=== PATIENT | male | born 1990 | race Caucasian/White ===

== ENCOUNTER 2016-08-15 16:35 | Emergency (ER) | payer BC ==
[~2016-08-15] VITALS: Ht 185.4 cm; Wt 78.5 kg
[~2016-08-15 16:35] MED LIST: FLUO20CA42 PO; HYDR-757 PO; ONDA4TAB8 PO
--- OUTSIDE RECORDS SUMMARY | 2016-08-15 16:41 | XMS REPORT | Continuity of Care Document ---
Author Author [facility] Organization [facility] Address Unknown Phone Unavailable Care Team Providers Care Cloth Grader Name Role Phone CHRISTINA CHACON MD PCP Insurance Providers Payer Name Policy Number Subscriber Name [id number] Self / Same As Patient Advance Directives Directive Response Recorded Date/Time Advance Directives No 07/29/14 7:57pm Chief Complaint and Reason for Visit Chief Complaint Abdominal/GI Problems Reason for Visit Inflammatory bowel disease Problems Active Problems Medical Problem Onset Date Status Gastroenteritis Unknown Acute Gastroenteritis Unknown Acute Inflammatory bowel disease Unknown Acute Medications Current Home Medications Medication Dose Units Route Directions Days/Qty Instructions Start Date Fluoxetine Hcl 20 Mg 1 Each Oral Daily 07/29/14 Ondansetron 4 Mg 4 Mg Oral Every 4HRS as needed for Nausea 20 03/21/16 Hydrocodone/Acetaminophen 1 Each 1 Each Oral Every 4HRS for Pain 20 Social History Social History Problem Response Recorded Date/Time Alcohol Use Denies Use 07/29/2014 7:57pm Recreational Drug Use No 07/29/2014 7:57pm Recent Foreign Travel No 03/21/2016 8:45am Recent Infectious Disease Exposure No 03/21/2016 8:45am Hospitalization with Isolation Denies 03/21/2016 8:45am Recent Hopitalizations No 03/21/2016 8:53am Hospitalization with Isolation Denies 03/21/2016 8:45am Hospital Discharge Instructions No hospital discharge instructions. Plan of Care Discharge Date 03/21/16 11:15am Disposition 01 HOME, SELF-CARE Condition at Discharge Improved Instructions/Education Provided Acute Abdominal Pain (ED) Forms Provided Work Release Form Prescriptions See Medication Section Referrals CHRISTINA CHACON MD - Primary Care Physician Additional Instructions/Education Vicodin and Zofran as needed for pain and nausea. Clear liquids today. Close follow-up with Dr. Chacon. Return if any problems. All discharge instructions reviewed with patient and/or family. Voiced understanding. Functional Status No functional status results. Allergies, Adverse Reactions, Alerts Allergen Type Severity Reaction Status Last Updated NKANo Known Allergies Allergy Unknown Active 10/22/05 Immunizations No immunization records. Vital Signs Acute Vital Signs Vital Response Date/Time Temperature (Fahrenheit) 99 degrees F (97.6 - 99.5) 03/21/2016 8:45am Temperature (Calculated Celsius) 37.2252 degrees C (36.4 - 37.5) 03/21/2016 8 :45am Temperature Source Temporal 03/21/2016 8:45am Pulse Rate (adult) 88 bpm (60 - 90) 03/21/2016 8:45am Respiratory Rate 18 bpm (12 - 24) 03/21/2016 8:45am O2 Sat by Pulse Oximetry 98 % (88 - 100) 03/21/2016 8:45am Blood Pressure 124/71 mm Hg 03/21/2016 8:45am Blood Pressure Mean 88 mm Hg 03/21/2016 8:45am Pain Numeric Pain Scale 6 03/21/2016 9:02am Height (Feet) 6 feet 03/21/2016 8:45am Height (Inches) 1 inches 03/21/2016 8:45am Height (Calculated Centimeters) 185.541262 cm 03/21/2016 8:45am Weight (Pounds) 180 pounds 03/21/2016 8:45am Weight (Calculated Kilograms) 81.245183 kilograms 03/21/2016 8:45am Capillary Refill Capillary Refill Less Than 3 Seconds 03/21/2016 8:45am Height 6 ft 1 in Weight 180 lb Body Mass Index 23.7 kg/m^2 Results Laboratory Results Test Name Result Units Flags Reference Collection Date/Time Result Date/ Time Comments White Blood Count 9.4 10^3/uL 4.3-11.0 03/21/2016 8:50am 03/21/2016 9: 02am Red Blood Count 4.84 10^6/uL 4.35-5.85 03/21/2016 8:50am 03/21/2016 9: 02am Hemoglobin 15.1 G/DL 13.3-17.7 03/21/2016 8:50am 03/21/2016 9:02am Hematocrit 42 % 40-54 03/21/2016 8:50am 03/21/2016 9:02am Mean Corpuscular Volume 86 FL 80-99 03/21/2016 8:50am 03/21/2016 9: 02am Mean Corpuscular Hemoglobin 31 PG 25-34 03/21/2016 8:50am 03/21/2016 9: 02am Mean Corpuscular Hemoglobin Concent 36 G/DL 32-36 03/21/2016 8:50am 9:02am Red Cell Distribution Width 12.2 % 10.0-14.5 03/21/2016 8:50am 2015 9:02am Platelet Count 154 10^3/uL 130-400 03/21/2016 8:50am 03/21/2016 9:02am Mean Platelet Volume 10.7 FL H 7.4-10.4 03/21/2016 8:50am 03/21/2016 9: 02am Neutrophils (%) (Auto) 89 % H 42-75 03/21/2016 8:50am 03/21/2016 9:02am Lymphocytes (%) (Auto) 5 % L 12-44 03/21/2016 8:50am 03/21/2016 9:02am Monocytes (%) (Auto) 6 % 0-12 03/21/2016 8:50am 03/21/2016 9:02am Eosinophils (%) (Auto) 0 % 0-10 03/21/2016 8:50am 03/21/2016 9:02am Basophils (%) (Auto) 0 % 0-10 03/21/2016 8:50am 03/21/2016 9:02am Neutrophils # (Auto) 8.4 X 10^3 H 1.8-7.8 03/21/2016 8:50am 03/21/2016 9: 02am Lymphocytes # (Auto) 0.4 X 10^3 L 1.0-4.0 03/21/2016 8:50am 03/21/2016 9: 02am Monocytes # (Auto) 0.6 X 10^3 0.0-1.0 03/21/2016 8:50am 03/21/2016 9: 02am Eosinophils # (Auto) 0.0 10^3/uL 0.0-0.3 03/21/2016 8:50am 03/21/2016 9 :02am Basophils # (Auto) 0.0 10^3/uL 0.0-0.1 03/21/2016 8:50am 03/21/2016 9: 02am Neutrophils % (Manual) 82 % 03/21/2016 8:50am 03/21/2016 9:21am Band Neutrophils 9 % 03/21/2016 8:50am 03/21/2016 9:21am Lymphocytes % (Manual) 3 % 03/21/2016 8:50am 03/21/2016 9:21am Monocytes % (Manual) 5 % 03/21/2016 8:50am 03/21/2016 9:21am Eosinophils % (Manual) 1 % 03/21/2016 8:50am 03/21/2016 9:21am Basophils % (Manual) 0 % 03/21/2016 8:50am 03/21/2016 9:21am Blood Morphology Comment NORMAL 03/21/2016 8:50am 03/21/2016 9: 21am Sodium Level 134 MMOL/L L 135-145 03/21/2016 8:50am 03/21/2016 9:34am Potassium Level 3.6 MMOL/L 3.6-5.0 03/21/2016 8:50am 03/21/2016 9:34am Chloride Level 102 MMOL/L 98-107 03/21/2016 8:50am 03/21/2016 9:34am Carbon Dioxide Level 21 MMOL/L 21-32 03/21/2016 8:50am 03/21/2016 9: 34am Anion Gap 11 MMOL/L 5-14 03/21/2016 8:50am 03/21/2016 9:34am Blood Urea Nitrogen 9 MG/DL 7-18 03/21/2016 8:50am 03/21/2016 9:34am Creatinine 0.95 MG/DL 0.60-1.30 03/21/2016 8:50am 03/21/2016 9:34am BUN/Creatinine Ratio 9 03/21/2016 8:50am 03/21/2016 9:34am Estimat Glomerular Filtration Rate > 60 03/21/2016 8:50am 2015 9:34am GFR INTERPRETIVE DATA UNITS FOR ESTIMATED GFR (eGFR): mL/min/1.73 M2 REFERENCE RANGE FOR ESTIMATED GFR (eGFR) eGFR NORMAL eGFR >60 MODERATELY DECREASED eGFR 30-59 SEVERLY DECREASED eGFR 15-29 KIDNEY FAILURE <15 (OR DIALYSIS) Glucose Level 148 MG/DL H 70-105 03/21/2016 8:50am 03/21/2016 9:34am Calcium Level 9.5 MG/DL 8.5-10.1 03/21/2016 8:50am 03/21/2016 9:34am Total Bilirubin 1.0 MG/DL 0.1-1.0 03/21/2016 8:50am 03/21/2016 9:34am Alkaline Phosphatase 65 U/L 40-136 03/21/2016 8:50am 03/21/2016 9:34am Aspartate Amino Transf (AST/SGOT) 21 U/L 5-34 03/21/2016 8:50am 2015 9:34am Alanine Aminotransferase (ALT/SGPT) 28 U/L 0-55 03/21/2016 8:50am 03/21 9:34am Total Protein 7.0 G/DL 6.4-8.2 03/21/2016 8:50am 03/21/2016 9:34am Albumin 4.6 G/DL H 3.2-4.5 03/21/2016 8:50am 03/21/2016 9:34am Lipase 14 U/L 8-78 03/21/2016 8:50am 03/21/2016 9:34am Procedures No known history of procedures. Encounters Encounter Location Arrival/Admit Date Discharge/Depart Date Attending Provider Departed Emergency Room [facility] 03/21/16 8:38am 03/21 11:15am CLAU FOSTER MD Recent Diagnosis
--- NOTE | 2016-08-15 17:10 | ED GI ---
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 The patient noted blood in his stool shortly prior to presentation to emergency department today. The patient's symptoms began 2 days ago. Patient denies associated fever, chills, dysuria, vomiting, or black or tarry stools. Patient's past medical history is noncontributory. The patient describes episodes of blood clots and bleeding without stool mixed in with the blood. Allergies and Home Medications Allergies Coded Allergies: NKANo Known Allergies (Verified Allergy, Unknown, 10/22/05) Home Medications Fluoxetine Hcl 20 Mg Capsule 1 EACH PO DAILY (Reported) Review of Systems Constitutional: No chills, No fever EENTM: No Eye Pain Respiratory: Denies Cough Cardiovascular: Denies Chest Pain Gastrointestinal: Abdominal Pain Blood Streaked Stools Diarrhea Genitourinary: Denies Burning, Denies Frequency Musculoskeletal: No back pain Skin: No rash Psychiatric/Neurological: No Symptoms Reported Endocrine: No Symptoms Reported Hematologic/Lymphatic: No Symptoms Reported Past Igtrzcz-Wtinfk-Jijtrt Hx Patient Social History Alcohol Use: Occasionally Uses Recreational Drug Use: No Smoking Status: Never a Smoker Recent Foreign Travel: No Contact w/Someone Who Travel: No Recent Infectious Disease Expo: No Recent Hopitalizations: No Physical Abuse Screen: No Sexual Abuse: No Immunizations Up To Date PED Vaccines UTD: Yes Surgeries HX Surgeries: No Respiratory Hx Respiratory Disorders: No Cardiovascular Hx Cardiac Disorders: No Neurological Hx Neurological Disorders: Yes (HX OF SEIZURES A CHILD) Reproductive System Hx Reproductive Disorders: No Genitourinary Hx Genitourinary Disorders: No Gastrointestinal Hx Gastrointestinal Disorders: No Musculoskeletal Hx Musculoskeletal Disorders: No Endocrine Hx Endocrine Disorders: No HEENT HX ENT Disorders: No Cancer Hx Cancer: No Psychosocial Hx Psychiatric Problems: Yes Behavioral Health Disorders: Anxiety, Depression Integumentary HX Skin/Integumentary Disorder: No Blood Transfusions Hx Blood Disorders: No Adverse Reaction to a Blood Tr: No Reviewed Nursing Assessment Reviewed/Agree w Nursing PMH: Yes Physical Exam Vital Signs VS - Last 72 Hours, by Label 08/15/16 16:42 Temp 97.2 Pulse 61 Resp 18 B/P 124/84 Pulse Ox 100 O2 Delivery Room Air Capillary Refill : Less Than 3 Seconds General Appearance: WD/WN no apparent distress HEENT: normal ENT inspection Neck: normal inspection Respiratory: chest non-tender lungs clear normal breath sounds Cardiovascular: regular rate, rhythm no edema Gastrointestinal: normal bowel sounds non tender soft no organomegaly Rectal: normal exam normal rectal tone heme negative stool Extremities: normal range of motion non-tender Back: normal inspection Pelvic: normal external exam normal adnexa Male: normal genitalia Neurologic/Psychiatric: no motor/sensory deficits alert Skin: normal color warm/dry Progress/Results/Core Measures Results/Orders Lab Results Laboratory Tests Test 08/15/16 17:10 Range/Units Alanine Aminotransferase (ALT/SGPT) 55 0-55 U/L Albumin 4.5 3.2-4.5 G/DL Alkaline Phosphatase 65 40-136 U/L Anion Gap 8 5-14 MMOL/L Aspartate Amino Transf (AST/SGOT) 26 5-34 U/L BUN/Creatinine Ratio 10 Basophils # (Auto) 0.1 0.0-0.1 10^3/uL Basophils (%) (Auto) 1 0-10 % Blood Urea Nitrogen 9 7-18 MG/DL Calcium Level 9.1 8.5-10.1 MG/DL Carbon Dioxide Level 25 21-32 MMOL/L Chloride Level 106 98-107 MMOL/L Creatinine 0.88 0.60-1.30 MG/DL Eosinophils # (Auto) 0.4 H 0.0-0.3 10^3/uL Eosinophils (%) (Auto) 5 0-10 % Estimat Glomerular Filtration Rate > 60 Glucose Level 89 70-105 MG/DL Hematocrit 42 40-54 % Hemoglobin 14.9 13.3-17.7 G/DL INR Comment 1.0 0.8-1.4 Lymphocytes # (Auto) 1.5 1.0-4.0 X 10^3 Lymphocytes (%) (Auto) 23 12-44 % Mean Corpuscular Hemoglobin 31 25-34 PG Mean Corpuscular Hemoglobin Concent 35 32-36 G/DL Mean Corpuscular Volume 87 80-99 FL Mean Platelet Volume 10.6 H 7.4-10.4 FL Monocytes # (Auto) 0.7 0.0-1.0 X 10^3 Monocytes (%) (Auto) 10 0-12 % Neutrophils # (Auto) 4.1 1.8-7.8 X 10^3 Neutrophils (%) (Auto) 61 42-75 % Platelet Count 165 130-400 10^3/uL Potassium Level 4.0 3.6-5.0 MMOL/L Prothrombin Time 12.4 12.2-14.7 SEC Red Blood Count 4.84 4.35-5.85 10^6/uL Red Cell Distribution Width 12.5 10.0-14.5 % Sodium Level 139 135-145 MMOL/L Total Bilirubin 0.5 0.1-1.0 MG/DL Total Protein 6.9 6.4-8.2 G/DL White Blood Count 6.6 4.3-11.0 10^3/uL My Orders Orders-CLAU FOSTER MD Cbc With Automated Diff (08/15/16 17:05) Comprehensive Metabolic Panel (08/15/16 17:05) Protime With Inr (08/15/16 17:05) Urinalysis (08/15/16 17:05) Ns Iv 1000 Ml (Sodium Chloride 0.9%) (08/15/16 17:15) Saline Lock/Iv-Start (08/15/16 17:23) Vital Signs/I&O Vital Sign - Last 12Hours 08/15/16 16:42 Temp 97.2 Pulse 61 Resp 18 B/P 124/84 Pulse Ox 100 O2 Delivery Room Air Blood Pressure Mean: 97 Progress Note : Time: 17:37 Progress Note The patient had a stool while in the emergency department. The stool was essentially bright red blood with several clots. Patient's rectal exam demonstrated normal stool which was guaiac negative. Patient's CBC, pro time, and CMP were unremarkable. I discussed the findings with the patient and reassured him. I asked to follow closely with his primary care physician, Dr. Chacon, and consider referral for GI for colonoscopy. The episodes of bright red blood are suggestive of inflammatory bowel disease. ECG Initial ECG Impression Date: Aug 15, 2016 Departure Impression Impression: Primary Impression: Rectal bleed Disposition: HOME, SELF-CARE Condition: Unchanged Departure-Patient Inst. Decision time for Depature: 17:55 Referrals: CHRISTINA CHACON MD (PCP/Family) Primary Care Physician Patient Instructions: Inflammatory Bowel Disease (DC) Add. Discharge Instructions: Follow-up Dr. Chacon. Return if any problems. All discharge instructions reviewed with patient and/or family. Voiced understanding. CLAU FOSTER MD Aug 15, 2016 17:10
[2016-08-15] MEDS ORDERED: NS IV 1000 ML 1,000 ML IV SCH (17:15)
[2016-08-15 17:32] LABS: BASOPHILS # (AUTO) 0.1 10^3/uL (0.0-0.1); BASOPHILS % (AUTO) 1 % (0-10); EOSINOPHILS # (AUTO) 0.4 10^3/uL (0.0-0.3); EOSINOPHILS % (AUTO) 5 % (0-10); LYMPHOCYTES # (AUTO) 1.5 X 10^3 (1.0-4.0); LYMPHOCYTES % (AUTO) 23 % (12-44); MEAN CORPUSCULAR HEMOGLOBIN 31 PG (25-34); MEAN CORPUSCULAR HGB CONC 35 G/DL (32-36); MEAN CORPUSCULAR VOLUME 87 FL (80-99); MEAN PLATELET VOLUME 10.6 FL (7.4-10.4); MONOCYTES # (AUTO) 0.7 X 10^3 (0.0-1.0); MONOCYTES % (AUTO) 10 % (0-12); NEUTROPHILS # (AUTO) 4.1 X 10^3 (1.8-7.8); NEUTROPHILS % (AUTO) 61 % (42-75); PLATELET COUNT 165 10^3/uL (130-400); RED BLOOD COUNT 4.84 10^6/uL (4.35-5.85); RED CELL DISTRIBUTION WIDTH 12.5 % (10.0-14.5); WHITE BLOOD COUNT 6.6 10^3/uL (4.3-11.0)
[2016-08-15 17:35] LABS: PROTHROMBIN TIME PATIENT 12.4 SEC (12.2-14.7)
[2016-08-15 17:47] LABS: ALANINE AMINOTRANSFERASE 55 U/L (0-55); ALBUMIN 4.5 G/DL (3.2-4.5); ANION GAP 8 MMOL/L (5-14); ASPARTATE AMINO TRANSFERASE 26 U/L (5-34); BILIRUBIN,TOTAL 0.5 MG/DL (0.1-1.0); BLOOD UREA NITROGEN 9 MG/DL (7-18); BUN/CREATININE RATIO 10; CALCIUM 9.1 MG/DL (8.5-10.1); CARBON DIOXIDE 25 MMOL/L (21-32); CHLORIDE 106 MMOL/L (98-107); CREATININE SERUM 0.88 MG/DL (0.60-1.30); GFR ESTIMATED > 60; GLUCOSE 89 MG/DL (70-105); SODIUM 139 MMOL/L (135-145); TOTAL PROTEIN 6.9 G/DL (6.4-8.2)
[2016-08-15 18:05] VITALS: BP 113/75
== END 2016-08-15 18:10 | disposition home or self-care (01) ==
LOC: EDUNIT# 16:35 → ER 16:37
DX: K62.5 Hemorrhage of anus and rectum (principal); R19.7 Diarrhea, unspecified
CPT/HCPCS: 36415; 80053; 85025; 85610; 96360

== ENCOUNTER 2016-08-18 10:46 | Outpatient (CLI) | payer BC ==
[~2016-08-18] VITALS: Ht 185.4 cm; Wt 78.5 kg
--- OUTSIDE RECORDS SUMMARY | 2016-08-18 10:49 | XMS REPORT | Continuity of Care Document ---
Author Author [facility] Organization [facility] Address Unknown Phone Unavailable Care Team Providers Care Spinning Doffer Name Role Phone CHRISTINA CHACON MD PCP Insurance Providers Payer Name Policy Number [id number] Self / Same As [...] 1 inches 03/21/2016 8:45am Height (Calculated Centimeters) [phone] cm 03/21/2016 8:45am Weight (Pounds) 180 pounds 03/21/2016 8:45am Weight (Calculated Kilograms) 81.727799 kilograms 03/21/2016 8:45am Capillary Refill Capillary Refill [...] Date Attending Provider Departed Emergency Room [facility] 03/21/16 8:38am 03/21 11:15am CLAU FOSTER MD Recent Diagnosis
[2016-08-18] MEDS ORDERED: OMEP20TA33 PO (10:54)
[2016-08-18] MEDS ORDERED: LACT1CAP39 PO (10:54)
== END 2016-08-18 10:55 ==
LOC: PREOP 10:46
PROVIDERS: ATTEND Surgery
DX: Z01.818 Encounter for other preprocedural examination (principal); K62.5 Hemorrhage of anus and rectum; R19.7 Diarrhea, unspecified

== ENCOUNTER 2016-08-19 09:41 | Day surgery (SDC) | payer BC ==
[~2016-08-19] VITALS: Ht 185.4 cm; Wt 78.5 kg
[~2016-08-19 09:41] MED LIST changes: +LACT1CAP39 PO; +OMEP20TA33 PO
--- OUTSIDE RECORDS SUMMARY | 2016-08-19 09:44 | XMS REPORT | Continuity of Care Document ---
Author Author [facility] Organization [facility] Address Unknown Phone Unavailable Care Team Providers Care Urban Forester Name Role Phone CHRISTINA CHACON MD PCP Insurance Providers Payer Name Policy Number Subscriber [id number] Yash Mendez Self / Same [...] 1 inches 03/21/2016 8:45am Height (Calculated Centimeters) [phone] cm 03/21/2016 8:45am Weight (Pounds) 180 pounds 03/21/2016 8:45am Weight (Calculated Kilograms) 81.009773 kilograms 03/21/2016 8:45am Capillary Refill Capillary Refill [...] Emergency Room [facility] 03/21/16 8:38am 03/21 11:15am CLAU FOSTER MD Recent Diagnosis
--- OUTSIDE RECORDS SUMMARY | 2016-08-19 09:44 | XMS REPORT | Continuity of Care Document ---
Author Author [facility] Organization [facility] Address Unknown Phone Unavailable Care Team Providers Care Price Economist Name Role Phone CHRISTINA CHACON MD PCP Insurance Providers Payer Name Policy Number [facility]scriber [id number] Mendez Self / Same As [...] 1 inches 03/21/2016 8:45am Height (Calculated Centimeters) [phone] cm 03/21/2016 8:45am Weight (Pounds) 180 pounds 03/21/2016 8:45am Weight (Calculated Kilograms) 81.829574 kilograms 03/21/2016 8:45am Capillary Refill Capillary Refill [...] Date Attending Provider Departed Emergency Room [facility] 03/21/16 8:38am 03/21 11:15am CLAU FOSTER MD Recent Diagnosis
[2016-08-19] MEDS ORDERED: FLUMAZENIL (ROMAZICON) 0.1 MG/ML 5 ML VIAL INJ PRN (10:30)
[2016-08-19] MEDS ORDERED: NS IV 500 ML 500 ML IV PRN (10:30)
[2016-08-19] MEDS ORDERED: NALOXONE 0.4 MG/ML 1 ML (NARCAN) VIAL IVP PRN (10:30)
[2016-08-19 10:45] VITALS: BP 115/77
[2016-08-19] MEDS ORDERED: MIDAZOLAM 2 MG/2 ML (VERSED) VIAL ONE ×5 (11:16→11:17)
[2016-08-19] MEDS ORDERED: fentaNYL INJECTION 100 MCG/2 ML AMP ONE ×2 (11:16)
[2016-08-19] MEDS: fentaNYL INJECTION 100 MCG/2 ML AMP IVP PRN ×2 (11:24→11:26)
[2016-08-19] MEDS: MIDAZOLAM 2 MG/2 ML (VERSED) VIAL IVP PRN ×3 (11:25→11:29)
--- NOTE | 2016-08-19 11:26 | Pre-Op Note & Conscious Sedat ---
Pre-Operative Progress Note H&P Reviewed The H&P was reviewed, patient examined and no changes noted. Date H&P Reviewed: Aug 19, 2016 Time H&P Reviewed: 11:25 Pre-Op Diagnosis: rectal bleeding and diarrhea Conscious Sedation Pre-Proced ASA Class: 1 Airway Mallampati Classification: ([place]-apache appropriate class) I. II. III, IV Lungs Heart ASA score ASA 1: a normal healthy patient ASA 2: a patient with a mild systemic disease (mid diabetes, controlled hypertension, obesity ASA 3: a patient with a severe systemic disease that limits activity (angina , COPD, prior Myocardial infarction) ASA 4: a patient with an incapacitating disease that is a constant threat to life (CHF, renal failure) ASA 5: a moribund patient not expected to survive 24 hrs. (ruptured aneurysm) ASA 6: a declared brain patient whose organs are being harvested. For emergent operations, add the letter E after the classification Grade 1 Sedation Plan: Discussed options with patient/fam Note The patient is an appropriate candidate to undergo the planned procedure, sedation, and anesthesia. The patient immediately re-assessed prior to indication. ALEXYS ANAYA MD Aug 19, 2016 11:26 am
--- NOTE | 2016-08-19 11:43 | Progress Note-Post Operative ---
Post-Operative Progess Note Pre-Operative Diagnosis rectal bleeding and diarrhea Post-Operative Diagnosis inflammation and erythema along the sigmoid colon Post-Op Procedure Note Date of Procedure: Aug 19, 2016 Name of Procedure: colonoscopy to cecum and multiple biopsies Anesthesia Type sedation Specimen(s) collected mucosa of transverse, sigmoid and rectum ALEXYS ANAYA MD Aug 19, 2016 11:43 am
--- NOTE | 2016-08-19 11:44 | Discharge Inst-Simple/Standard ---
Discharge Inst-Standard Discharge Medications New, Converted or Re-Newed RX: Other Patient Instructions/Follow Up Plan of Care/Instructions/FU: follow-up with me in a week to discuss pathology reports and further management Activity as Tolerated: Yes Discharge Diet: No Restrictions ALEXYS ANAYA MD Aug 19, 2016 11:44 am
--- NOTE | 2016-08-19 11:55 | OPERATIVE REPORT ---
PROCEDURE PHYSICIAN: ALEXYS ANAYA DATE OF PROCEDURE: 08/19/2016 PROCEDURE: Colonoscopy with biopsy. SURGEON: Mario. INDICATION FOR THE PROCEDURE: This gentleman came in for colonoscopy to evaluate new onset of bloody diarrhea and abdominal pain. An informed consent was obtained after reviewing the procedure in detail. DESCRIPTION OF PROCEDURE: He was placed in left lateral decubitus position and his vital signs were monitored. Conscious sedation was achieved using Versed and fentanyl. Digital rectal examination was unremarkable. The colonoscope was then introduced into the rectum and advanced to the cecum. It was then withdrawn slowly and the mucosa examined in a systematic fashion. FINDINGS: Mild inflammation and erythema along the sigmoid colon without any distinct ulceration. The rest of the colon and rectum were normal. Biopsies were taken, along with photodocumentation. He tolerated the procedure well and was taken back to the nursing area in a stable condition. IMPRESSION: 1. New onset of bloody diarrhea. 2. Erythema and inflammation of the sigmoid colon, etiology pending. Job ID: [id number] Dictated Date: 08/19/2016 11:42:30 Manufacturing Engineer Supervisor Date: 08/19/2016 11:49:20 / leonardo MILAN
[2016-08-19 12:05] VITALS: BP 114/70
[2016-08-19 12:35] VITALS: BP 127/83
[2016-08-19 12:50] VITALS: BP 127/83
== END 2016-08-19 12:50 | disposition home or self-care (01) ==
LOC: SDC 09:41
PROVIDERS: ATTEND Surgery
DX: R19.7 Diarrhea, unspecified (principal)

== ENCOUNTER 2018-09-16 12:25 | Emergency (ER) | payer BC ==
[~2018-09-16] VITALS: Ht 185.4 cm; Wt 77.1 kg
[~2018-09-16 12:25] MED LIST changes: +HYDR-4226 PO; -HYDR-757 PO
[2018-09-16 13:11] LABS: BASOPHILS % (AUTO) 0 % (0-10); EOSINOPHILS # (AUTO) 0.1 10^3/uL (0.0-0.3); EOSINOPHILS % (AUTO) 1 % (0-10); HEMATOCRIT 40 % (40-54); HEMOGLOBIN 14.2 G/DL (13.3-17.7); LYMPHOCYTES # (AUTO) 0.4 X 10^3 (1.0-4.0); LYMPHOCYTES % (AUTO) 4 % (12-44); MEAN CORPUSCULAR HEMOGLOBIN 31 PG (25-34); MEAN CORPUSCULAR HGB CONC 36 G/DL (32-36); MEAN CORPUSCULAR VOLUME 86 FL (80-99); MEAN PLATELET VOLUME 10.2 FL (7.4-10.4); MONOCYTES # (AUTO) 0.5 X 10^3 (0.0-1.0); MONOCYTES % (AUTO) 5 % (0-12); NEUTROPHILS # (AUTO) 9.4 X 10^3 (1.8-7.8); NEUTROPHILS % (AUTO) 90 % (42-75); PLATELET COUNT 149 10^3/uL (130-400); RED CELL DISTRIBUTION WIDTH 12.5 % (10.0-14.5); WHITE BLOOD COUNT 10.4 10^3/uL (4.3-11.0)
[2018-09-16] MEDS ORDERED: NS IV 1000 ML 1,000 ML IV SCH ×2 (13:21→14:05)
[2018-09-16] MEDS ORDERED: ONDANSETRON 4 MG/2 ML (SDV) Z0FRAN IVP ONE (13:30)
[2018-09-16] MEDS ORDERED: fentaNYL INJECTION 100 MCG/2 ML AMP IVP PRN (13:30)
--- NOTE | 2018-09-16 13:30 | ED GI ---
General Chief Complaint: Abdominal/GI Problems Stated Complaint: N/V/D Nursing Triage Note: ARRIVED VIA WC TO ROOM 01. STATES HE THINKS HE GOT FOOD POSIONING FROM EATING [employer] LAST NIGHT. COMPLAINS OF SEVERE N/V/D STARTING AT 0600 TODAY. HAD TO ASK HIM TO QUIT DRINKING WATER Sepsis Screen: No Definite Risk Source of Information: Patient, Family Exam Limitations: No Limitations History of Present Illness Date Seen by Provider: Sep 16, 2018 Time Seen by Provider: 13:28 Initial Comments This 27-year-old white male presents with nausea vomiting diarrhea after ingestion of questionable [place] food last night. The patient as had no associated headache stiff neck photophobia fever productive cough dysuria or frequency. The patient has had similar episodes from food poisoning in the past. He has not been with anyone who has the flu to the best of his knowledge. Allergies and Home Medications Allergies Coded Allergies: LOPEZANo Known Allergies (Verified Allergy, Unknown, 10/22/05) Home Medications Fluoxetine Hcl 20 Mg Capsule, 20 MG PO DAILY, (Reported) Patient Home Medication List Home Medication List Reviewed: Yes Review of Systems Review of Systems Constitutional: see HPI; No chills, No fever; malaise, weakness Respiratory: Denies Cough Cardiovascular: Denies Chest Pain Gastrointestinal: Denies Abdomen Distended; Diarrhea, Nausea, Vomiting Genitourinary: Denies Burning, Denies Drainage Musculoskeletal: No back pain Skin: No change in color, No rash Psychiatric/Neurological: No Symptoms Reported Endocrine: No Symptoms Reported Hematologic/Lymphatic: No Symptoms Reported Past Myzsvrf-Okgdqr-Cgydca Hx Past Med/Social Hx: Reviewed Nursing Past Med/Soc Hx Patient Social History Alcohol Use: Denies Use Recreational Drug Use: No Recent Foreign Travel: No Contact w/Someone Who Travel: No Recent Infectious Disease Expo: No Recent Hopitalizations: No Immunizations Up To Date PED Vaccines UTD: Yes Seasonal Allergies Seasonal Allergies: No Past Medical History Surgeries: Yes (wisdom teeth, required 2nd sx after tonsillectomy r/t bleeding) Tonsillectomy Respiratory: No Cardiac: No Neurological: Yes (HX OF SEIZURES A CHILD) Reproductive Disorders: No Gastrointestinal: Yes (rectal bleeding) Chronic Diarrhea Musculoskeletal: No Endocrine: No Cancer: No Psychosocial: Yes Anxiety, Depression Integumentary: No Blood Disorders: No Adverse Reaction/Blood Tranf: No Physical Exam Vital Signs Vital Signs - First Documented 09/16/18 12:50 Temp 98.0 Pulse 90 Resp 16 B/P (MAP) 119/75 (90) Capillary Refill : Less Than 3 Seconds Height/Weight/BMI Height: 6'1.00" Weight: 170lbs. 0.0oz. [id number]; 22.8 BMI Method:Stated General Appearance: WD/WN, mild distress HEENT: normal ENT inspection Neck: normal inspection Respiratory: lungs clear Cardiovascular: normal peripheral pulses, regular rate, rhythm Gastrointestinal: normal bowel sounds, non tender, soft Extremities: normal range of motion, non-tender Back: normal inspection, no CVA tenderness Neurologic/Psychiatric: no motor/sensory deficits, alert Skin: normal color, warm/dry Progress/Results/Core Measures Results/Orders Lab Results Laboratory Tests Test 09/16/18 13:00 09/16/18 14:58 Range/Units White Blood Count 10.4 4.3-11.0 10^3/uL Red Blood Count 4.64 4.35-5.85 10^6/uL Hemoglobin 14.2 13.3-17.7 G/DL Hematocrit 40 40-54 % Mean Corpuscular Volume 86 80-99 FL Mean Corpuscular Hemoglobin 31 25-34 PG Mean Corpuscular Hemoglobin Concent 36 32-36 G/DL Red Cell Distribution Width 12.5 10.0-14.5 % Platelet Count 149 130-400 10^3/uL Mean Platelet Volume 10.2 7.4-10.4 FL Neutrophils (%) (Auto) 90 H 42-75 % Lymphocytes (%) (Auto) 4 L 12-44 % Monocytes (%) (Auto) 5 0-12 % Eosinophils (%) (Auto) 1 0-10 % Basophils (%) (Auto) 0 0-10 % Neutrophils # (Auto) 9.4 H 1.8-7.8 X 10^3 Lymphocytes # (Auto) 0.4 L 1.0-4.0 X 10^3 Monocytes # (Auto) 0.5 0.0-1.0 X 10^3 Eosinophils # (Auto) 0.1 0.0-0.3 10^3/uL Basophils # (Auto) 0.0 0.0-0.1 10^3/uL Neutrophils % (Manual) 95 % Lymphocytes % (Manual) 4 % Monocytes % (Manual) 1 % Blood Morphology Comment NORMAL Sodium Level 134 L 135-145 MMOL/L Potassium Level 3.9 3.6-5.0 MMOL/L Chloride Level 101 98-107 MMOL/L Carbon Dioxide Level 23 21-32 MMOL/L Anion Gap 10 5-14 MMOL/L Blood Urea Nitrogen 10 7-18 MG/DL Creatinine 0.78 0.60-1.30 MG/DL Estimat Glomerular Filtration Rate > 60 BUN/Creatinine Ratio 13 Glucose Level 105 70-105 MG/DL Calcium Level 9.2 8.5-10.1 MG/DL Corrected Calcium 8.9 8.5-10.1 MG/DL Total Bilirubin 0.6 0.1-1.0 MG/DL Aspartate Amino Transf (AST/SGOT) 24 5-34 U/L Alanine Aminotransferase (ALT/SGPT) 29 0-55 U/L Alkaline Phosphatase 65 40-136 U/L Total Protein 6.8 6.4-8.2 GM/DL Albumin 4.4 3.2-4.5 GM/DL Lipase 12 8-78 U/L Urine Color YELLOW Urine Clarity CLEAR Urine pH 5 5-9 Urine Specific [place] 1.010 L 1.016-1.022 Urine Protein NEGATIVE NEGATIVE Urine Glucose (UA) NEGATIVE NEGATIVE Urine Ketones NEGATIVE NEGATIVE Urine Nitrite NEGATIVE NEGATIVE Urine Bilirubin NEGATIVE NEGATIVE Urine Urobilinogen NORMAL NORMAL MG/DL Urine Leukocyte Esterase NEGATIVE NEGATIVE Urine RBC (Auto) NEGATIVE NEGATIVE Urine RBC NONE /HPF Urine WBC 0-2 /HPF Urine Squamous Epithelial Cells NONE /HPF Urine Crystals NONE /LPF Urine Bacteria NEGATIVE /HPF Urine Casts NONE /LPF Urine Mucus SMALL H /LPF Urine Culture Indicated NO My Orders Orders - CLAU FOSTER MD Ns Iv 1000 Ml (Sodium Chloride 0.9%) (09/16/18 13:21) Ondansetron Injection (Zofran Injectio (09/16/18 13:30) Fentanyl Injection (Sublimaze Injection (09/16/18 13:30) Ns Iv 1000 Ml (Sodium Chloride 0.9%) (09/16/18 14:05) Medications Given in ED Current Medications Medications Dose Ordered Sig/Jen Route Start Time Stop Time Status Last Admin Dose Admin Fentanyl Citrate 50 mcg ONCE PRN IVP 09/16/18 13:30 09/16/18 13:32 50 MCG Ondansetron HCl 4 mg ONCE ONCE IVP 09/16/18 13:30 09/16/18 13:31 DC 09/16/18 13:32 4 MG Vital Signs/I&O 09/16/18 12:50 Temp 98.0 Pulse 90 Resp 16 B/P (MAP) 119/75 (90) Blood Pressure Mean: 90 Progress Progress Note : Time: 14:10 Progress Note The patient was feeling much improved after his first liter of normal saline, zofran, and fentanyl. His labs were unremarkable. 3:25 p.m. The patient was sufficiently hydrated that he urinated prior to departure from the emergency department. Departure Impression Primary Impression: Nausea and vomiting Qualified Codes: R11.2 - Nausea with vomiting, unspecified Additional Impression: Diarrhea Qualified Codes: R19.7 - Diarrhea, unspecified Disposition: 01 HOME, SELF-CARE Condition: Improved Departure-Patient Inst. Decision time for Depature: 14:14 Referrals: CHRISTINA BOYLE MD (PCP/Family) Primary Care Physician Patient Instructions: Nausea and Vomiting of (DC) Add. Discharge Instructions: Clear liquids for the next 24 hours. Zofran for nausea. Close follow-up with her doctor on Tuesday. Return if any problems or questions. All discharge instructions reviewed with patient and/or family. Voiced understanding. CLAU FOSTER MD Sep 16, 2018 13:30
[2018-09-16 13:33] LABS: ALANINE AMINOTRANSFERASE 29 U/L (0-55); ALBUMIN 4.4 GM/DL (3.2-4.5); ALKALINE PHOSPHATASE 65 U/L (40-136); BILIRUBIN,TOTAL 0.6 MG/DL (0.1-1.0); BUN/CREATININE RATIO 13; CALCIUM 9.2 MG/DL (8.5-10.1); CARBON DIOXIDE 23 MMOL/L (21-32); CHLORIDE 101 MMOL/L (98-107); CREATININE SERUM 0.78 MG/DL (0.60-1.30); GFR ESTIMATED > 60; GLUCOSE 105 MG/DL (70-105); LIPASE 12 U/L (8-78); LYMPHOCYTES % (MANUAL) 4 %; MONOCYTES % (MANUAL) 1 %; NEUTROPHILS % (MANUAL) 95 %; POTASSIUM 3.9 MMOL/L (3.6-5.0); RBC MORPH NORMAL; SODIUM 134 MMOL/L (135-145); TOTAL PROTEIN 6.8 GM/DL (6.4-8.2)
--- NOTE | 2018-09-16 14:14 | NUR ---
RESTING IN BED WITH EYES CLOSED.
[2018-09-16 15:02] LABS: BILIRUBIN,URINE NEGATIVE (NEGATIVE); CLARITY,URINE CLEAR; COLOR,URINE YELLOW; GLUCOSE, URINE (UA) NEGATIVE (NEGATIVE); KETONES,URINE NEGATIVE (NEGATIVE); LEUKOCYTE ESTERASE ,URINE NEGATIVE (NEGATIVE); NITRITE,URINE NEGATIVE (NEGATIVE); PH,URINE 5 (5-9); PROTEIN,URINE NEGATIVE (NEGATIVE); UROBILINOGEN,URINE NORMAL (NORMAL)
--- NOTE | 2018-09-16 15:11 | NUR ---
RESTING IN BED ET DENIES NEEDS AT THIS TIME. PT SIPPING ON WATER.
[2018-09-16 15:14] LABS: BACTERIA,URINE NEGATIVE /HPF; WBC,URINE 0-2 /HPF
--- NOTE | 2018-09-16 15:24 | NUR ---
PT UP ET AMBULATING TO BATHROOM.
[2018-09-16 15:37] VITALS: BP 111/68
== END 2018-09-16 15:37 | disposition home or self-care (01) ==
LOC: EDUNIT# 12:25 → ER 12:26
DX: R11.2 Nausea with vomiting, unspecified (principal); R19.7 Diarrhea, unspecified; F41.9 Anxiety disorder, unspecified; F32.9 Major depressive disorder, single episode, unspecified; Z90.89 Acquired absence of other organs
CPT/HCPCS: 36415; 80053; 81000; 83690; 85007; 85027

== ENCOUNTER → 2020-05-22 | Outpatient (CLI) | payer BC ==
[~2020-05-22] MED LIST changes: +ACHD5005 PO; +CYCL10TA9 PO; +PRD20T PO
--- NOTE | 2020-05-22 12:53 | Diagnostic Imaging Report ---
INDICATION: Low back pain. Time of exam 12:43 PM 3 views lumbar spine were obtained. Curvature and alignment is normal. Vertebral body heights and disc spaces are well-maintained. No fracture or subluxation is identified. IMPRESSION: No acute bony abnormality is detected. Dictated by: Dictated on workstation # [id number]
== END ==
LOC: RAD 12:21
PROVIDERS: ATTEND Nurse Practitioner Family
DX: M54.5 Low back pain (principal)
CPT/HCPCS: 72100

== ENCOUNTER → 2020-06-30 | Outpatient (CLI) | payer BC ==
--- NOTE | 2020-06-30 11:19 | Diagnostic Imaging Report ---
PROCEDURE: MRI lumbar spine. TECHNIQUE: Multiplanar, multisequence MRI of the lumbar spine was performed without contrast. DATE: June 30, 2020. COMPARISON: Lumbar spine radiographs May 22, 2020. INDICATION: 29-year-old male, low back pain. Injury. FINDINGS: There is normal lumbosacral spine alignment. There is no evidence of a diffuse marrow infiltrating or replacing process. There is no concerning focal bone lesion. There is no compression deformity or fracture. The visualized cord and conus medullaris is unremarkable and terminates at the T12-L1 level. There is mild disc height loss at L5-S1. L1-L2: There is no disc bulge. The facet joints and ligamentum flavum are unremarkable. There is no foraminal narrowing. There is no spinal canal stenosis. L2-L3: There is no disc bulge. The facet joints and ligamentum flavum are unremarkable. There is no foraminal narrowing. There is no spinal canal stenosis. L3-L4: There is no disc bulge. The facet joints and ligamentum flavum are unremarkable. There is no foraminal narrowing. There is no spinal canal stenosis. L4-L5: There is no disc bulge. The facet joints and ligamentum flavum are unremarkable. There is no foraminal narrowing. There is no spinal canal stenosis. L5-S1: There is a left lateral recess disc extrusion contacting the descending left S1 nerve root and causing severe narrowing of the left lateral recess. The facet joints and ligamentum flavum are unremarkable. There is no foraminal narrowing. There is no spinal canal stenosis. IMPRESSION: L5-S1 left lateral recess disc extrusion contacting the descending left S1 nerve root and causing severe narrowing of the left lateral recess. Dictated by: Dictated on workstation # [id number]
== END ==
LOC: RAD 08:00
PROVIDERS: ATTEND Nurse Practitioner Family
DX: M48.07 Spinal stenosis, lumbosacral region (principal); M51.27 Other intervertebral disc displacement, lumbosacral region
CPT/HCPCS: 72148